=== PATIENT | female | born 1975 | race Caucasian/White ===

== ENCOUNTER 2021-08-02 16:57 | Emergency (ER) | payer OTHER ==
[~2021-08-02] VITALS: Ht 170.2 cm; Wt 54.4 kg
[2021-08-02] MEDS ORDERED: LYRICA (17:14)
[2021-08-02] MEDS ORDERED: ADDERALL (17:14)
[2021-08-02] MEDS ORDERED: CELEXA (17:14)
--- NOTE | 2021-08-02 17:16 | NUR ---
Dr Goodman at the bedside for MSE.
[2021-08-02] MEDS ORDERED: IV NORMAL SALINE 1000 ML BAG IV ONE (17:30)
[2021-08-02] MEDS ORDERED: FAMOTIDINE. 20 MG/2 ML VIAL IV ONE ×2 (17:30→17:31)
[2021-08-02] MEDS ORDERED: MAG HYDROX/AL HYDROX/SIMETH 30 ML LIQUID UDC PO ONE (17:30)
[2021-08-02] MEDS ORDERED: MAG HYDROX/AL HYDROX/SIMETH 30 ML LIQUID UDC ONE (17:31)
[2021-08-02 17:33] LABS: HEMATOCRIT 38.9 % (31.2-41.9); MEAN CORPUSCULAR HEMOGLOBIN 30.1 uug (24.7-32.8); MEAN CORPUSCULAR VOLUME 90.9 fL (75.5-95.3); PLATELET COUNT (AUTO) 187 K/uL (179-408)
[2021-08-02 17:38] LABS: *BILIRUBIN,URIN NEGATIVE (NEGATIVE); *BLOOD, URINE NEGATIVE (NEGATIVE); *CLARITY,URINE CLEAR (CLEAR); *COLOR,URINE YELLOW (YELLOW); *KETONES,URINE NEGATIVE (NEGATIVE); *UROBILINOGEN,URINE 0.2 E.U./dl (NORMAL); LEUKOCYTE ESTERASE ,URINE NEGATIVE (NEGATIVE); NITRITE, URINE NEGATIVE (NEGATIVE); PH,URINE 8.5 (5.0-8.0); UGLUCOSE NEGATIVE (NEGATIVE)
[2021-08-02 17:43] LABS: *URINE HCG, QUAL NEG (NEGATIVE)
[2021-08-02 17:47] LABS: BILIRUBIN,DIRECT 0.1 mg/dL (0.0-0.2); BILIRUBIN,TOTAL 0.4 mg/dL (0.2-1.0); CREATININE 0.7 mg/dL (0.6-1.3); POTASSIUM 3.5 mmol/L (3.5-5.1); TOTAL PROTEIN, SERUM 6.8 g/dL (6.4-8.2)
[2021-08-02] MEDS ORDERED: HYDROMORPHONE HCL 2 MG TABLET ONE (19:04)
[2021-08-02 19:08] VITALS: BP 112/60
--- NOTE | 2021-08-02 19:08 | NUR ---
IV removed. Catheter intact and site benign. Pressure and 4x4 gauze applied to site. No bleeding noted.
--- NOTE | 2021-08-02 19:09 | NUR ---
Patient discharged to home in stable condition. Written and verbal after care instructions given. Patient verbalizes understanding of instructions. Stressed follow up or return to ER for worsening s/s.
[2021-08-02] MEDS ORDERED: HYDROMORPHONE HCL 2 MG TABLET PO ONE (19:15)
== END 2021-08-02 19:09 | disposition home or self-care (01) ==
LOC: ER 17:00
DX: R10.11 Right upper quadrant pain (principal); R10.13 Epigastric pain; M79.7 Fibromyalgia; F90.9 Attention-deficit hyperactivity disorder, unspecified type; Z79.899 Other long term (current) drug therapy; F32.A Depression, unspecified
CPT/HCPCS: 36415; 76705; 80048; 80076; 81003; 83690; 84703; 85025; 96361; 96374; 99284; J3490; J7040; A4663